=== PATIENT | male | born 1950 | race African-American/Black ===

== ENCOUNTER 2019-02-08 15:19 | Emergency (ER) | payer MEDICAID ==
[~2019-02-08] VITALS: Ht 188 cm; Wt 93.0 kg
[2019-02-08] MEDS ORDERED: SODIUM CHLORIDE 0.9% 1,000 ML IV ONE (16:00)
[2019-02-08 16:31] LABS: CHLORIDE 113 mEq/L (98-107)
[2019-02-08 16:34] LABS: PARTIAL THROMBOPLASTIN TIME 24.3 sec (23.4-31.0); PROTHROMBIN TIME 10.7 sec (9.6-11.0)
[2019-02-08 16:35] LABS: BASOPHILS % 1.1 % (0.0-2.0); EOSINOPHILS % 2.4 % (0.0-5.0); LYMPHOCYTES % 38.1 % (20.0-50.0); MEAN CORPUSCULAR HEMOGLOBIN 32.4 pg (28.0-32.0); MEAN CORPUSCULAR VOLUME 97.3 fL (80.0-94.0); MEAN PLATELET VOLUME 7.5 fl (7.4-10.4); MONOCYTES % 8.7 % (2.0-8.0); NEUTROPHILS % 49.7 % (40.0-76.0); PLATELET 322 x1000/uL (130-400); RED BLOOD CELL COUNT 4.01 mill/uL (4.7-6.1); RED CELL DISTRIBUTION WIDTH 13.3 % (11.6-14.6)
[2019-02-08] MEDS ORDERED: IBUPROFEN 600MG TABLET PO ONE (17:15)
[2019-02-08] MEDS ORDERED: ASPIRIN 81MG TABLET PO ONE (17:15)
[2019-02-08] MEDS ORDERED: FAMOTIDINE 20MG TABLET PO ONE (18:15)
[2019-02-08 20:00] VITALS: BP 141/85
[2019-02-08] MEDS ORDERED: ACETAMINOPHEN WITH CODEINE 300/30MG TABLET PO ONE (20:00)
== END 2019-02-08 20:51 | disposition short-term general hospital (02) ==
LOC: ER 15:19 → CANBEDREQ 21:15
DX: R55 Syncope and collapse (principal); Z91.81 History of falling; G89.29 Other chronic pain; M54.9 Dorsalgia, unspecified; H92.01 Otalgia, right ear; I10 Essential (primary) hypertension
CPT/HCPCS: 36415; 70450; 71045; 80053; 83880; 84484; 85025; 85610; 85730; 93005; 96360; 96361; 99285; J7030